=== PATIENT | female | born 1970 | race Asian ===

== ENCOUNTER 2024-05-23 09:46 | Outpatient (AMB) | payer OTHER, SELFPAY ==
--- NOTE | 2024-05-23 09:49 | MHC.PC.OV ---
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 Intake Note: Zohra presents in the office today to establish care and a physical Sales Representative Aircraft Required: Yes Sales Representative Aircraft Name: Son Allergies alginic acid [From Gaviscon] Allergy (Verified 05/23/24 09:53) Rash aluminum hydroxide [From Gaviscon] Allergy (Verified 05/23/24 09:53) Rash calcium carbonate [From Gaviscon] Allergy (Verified 05/23/24 09:53) Rash magnesium [From Gaviscon] Allergy (Verified 05/23/24 09:53) Rash sodium bicarbonate [From Gaviscon] Allergy (Verified 05/23/24 09:53) Rash Tobacco use date assessed: 05/23/24 Dental Screening Dental Screen Date: 05/23/24 Did you have a dental visit in the last 12 months?: Yes Did you have a dental problem in the last 6 months where you did not have access to dental care?: No Was dental information given to patient?: Patient has dentist HPI HPI Comments History of Present Illness Details 53 year old female with a past medical history of hypertension, varicotisits presenting to establish care. Previously at [facility]-one year was at [facility] Hypertension: On amlodipine. BP well controlled. Denies chest pain, exertional dyspnea. No LE edema Has laser vein surgery last year b/l legs in [place]. Preventive: Mammogram: [facility]. Reports UTD Declines ob gyn physician assistant Colon cancer: declines colonoscopy-difficulty with prep per patient. ROS CONSTITUTIONAL: Denies weight loss, fever and chills. HEENT: Denies changes in vision and hearing. RESPIRATORY: Denies SOB and cough. CV: Denies palpitations and CP GI: Denies abdominal pain, nausea, vomiting and diarrhea. : Denies dysuria and urinary frequency. MSK: Denies new myalgia and joint pain. SKIN: Denies rash and pruritus. NEUROLOGICAL: Denies headache PSYCHIATRIC: Denies recent changes in mood. PHYSICAL EXAM: GENERAL: Alert and oriented x 3. NAD EYES: EOMI. Anicteric. HENT: Moist mucous membranes. No scleral icterus. No cervical lymphadenopathy. LUNGS: Clear to auscultation bilaterally. CARDIOVASCULAR: Regular rate and rhythm. No murmur. No JVD. ABDOMEN: Soft, non-tender +bs EXTREMITIES: No edema. Non-tender. SKIN: No rashes or lesions. Warm. NEUROLOGIC: No focal neurological deficits. CN II-XII grossly intact PSYCHIATRIC: Cooperative. 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 1. Little interest or pleasure in doing things: not at all 2. Feeling down, depressed, or hopeless: not at all 3. Trouble falling or staying asleep, or sleeping too much: not at all 4. Feeling tired or having little energy: not at all 5. Poor appetite or overeating: not at all 6. Feeling bad about yourself - or that you are a failure or have let yourself or your family down: not at all 7. Trouble concentrating on things, such as reading the newspaper or watching television: not at all 8. Moving or speaking so slowly that other people could have noticed. Or the opposite - being so fidgety or restless that you have been moving around a lot more than usual: not at all 9. Thoughts that you would be better off or of hurting yourself in some way: not at all Total score: 0 Depression Screening Interpretation: Negative Depression Screening Done: Yes 08275 - PHQ-9 Billing: Patient declined-do not bill Source: Developed by Drs. Jackson Ramos, Yolis Weston, Bart Jack and colleagues, with an educational malena from [employer]. Thrive Questionnaire Date Thrive assessed: 05/23/24 I am a: Patient What is your living situation today?: I have a steady place to live Within the past 12 months, did the food you bought not last and you didn't have the money to get more?: Never true Within the past 12 months, did you worry whether your food would run out before you got money to buy more?: Never true Do you have trouble paying for medicines?: No Do you have trouble getting transportation to medical appointments?: No Do you have trouble paying your heating and electricity bill?: No Do you have trouble taking care of your child, family member or friend?: No Do you have trouble with day-to-day activities such as bathing, preparing meals, shopping, managing finances, etc.?: No Are you currently unemployed and looking for a job?: No Are you interested in more education?: Yes Please select the resources that you would like help with: None Currently or been in a relationship where the following occur: No concerns reported THRIVE Score: 0 AUDIT C Alcohol Use Questionnaire (AUDIT-C) 1. How often do you have a drink containing alcohol?: Never Total Score: 0 NURYS-7 AMB Questionnaire NURYS-7 Date NURYS - 7 assessed: 05/23/24 Feeling nervous, anxious, or on edge: 0 = Not at all Not being able to stop or control worryin = Not at all Worrying too much about different things: 0 = Not at all Trouble relaxin = Not at all Being so restless that it is hard to sit still: 0 = Not at all Becoming easily annoyed or irritable: 0 = Not at all Feeling afraid as if something awful might happen: 0 = Not at all Total NURYS-7 score (0-4 normal; 5-9 mild; 10-14 moderate; 15-21 severe): 0 Source: Developed by Drs. Jackson Ramos, Yolis Weston, Bart Jack and colleagues, with an educational malena from [employer]. NURYS-7 Assessment Billing NURYS-7 Assessment Tool: NURYS-7 Assessment 13506 Physical exam (Primary Care) Vital Signs: Last Vital Signs Pulse 91 05/23/24 09:56 BP 108/68 05/23/24 09:56 Pulse Ox 98 05/23/24 09:56 Oxygen Delivery Method Room Air 05/23/24 09:56 BMI result Body Mass Index 23.0 Tobacco/Smoking Status: Tobacco use Status Tobacco use date assessed 05/23/24 05/23/24 10:00 Patient Tobacco Use Status Never used Tobacco 05/23/24 10:00 e-Cigarette/Vaping Use Never Used 05/23/24 10:00 PHQ-9: PHQ-9 Score PHQ-9: Total score 0 05/23/24 13:00 Depression Screening Interpretation: Negative Thrive Assessment: Date of Thrive Assessment Date Thrive assessed 05/23/24 05/23/24 09:50 Currently or been in a relationship where the following occur: No concerns reported Coding Level of Care Code New Pt Level 4 (58864) Diagnoses Establishing care with new doctor, encounter for Z76.89 Primary hypertension I10 Hypertension type: primary hypertension Low serum vitamin B12 E53.8 Additional Codes NURYS-7 Assessment Billing - NURYS-7 Assessment Tool: NURYS-7 Assessment 68059 ([id number]) Assessment & Plan Assessment & Plan (1) Establishing care with new doctor, encounter for: Code(s): Z76.89 - Persons encountering health services in other specified circumstances (2) Hypertension: Code(s): I10 - Essential (primary) hypertension Category: Medical Qualifiers: Hypertension type: primary hypertension Qualified Code(s): I10 - Essential (primary) hypertension (3) Low serum vitamin B12: Code(s): E53.8 - Deficiency of other specified B group vitamins Category: Medical Plan 53 year old female to establish care Past medical, surgical, social an family history reviewed Medications reconciled HTN well controlled Due for labs Cologuard sent Orders: Orders Complete Blood Count Auto Diff Today I10 - Essential (primary) hypertension, Z13.0 - Encounter for screening for diseases of the blood and blood-forming organs and certain disorders involving the immune mechanism, Z13.220 - Encounter for screening for lipoid disorders, Z13.228 - Encounter for screening for other metabolic disorders Comprehensive Met. Panel Today I10 - Essential (primary) hypertension, Z13.0 - Encounter for screening for diseases of the blood and blood-forming organs and certain disorders involving the immune mechanism, Z13.220 - Encounter for screening for lipoid disorders, Z13.228 - Encounter for screening for other metabolic disorders Hemoglobin A1c Today I10 - Essential (primary) hypertension, Z13.0 - Encounter for screening for diseases of the blood and blood-forming organs and certain disorders involving the immune mechanism, Z13.220 - Encounter for screening for lipoid disorders, Z13.228 - Encounter for screening for other metabolic disorders TSH reflex Free T4 Today I10 - Essential (primary) hypertension, Z13.0 - Encounter for screening for diseases of the blood and blood-forming organs and certain disorders involving the immune mechanism, Z13.220 - Encounter for screening for lipoid disorders, Z13.228 - Encounter for screening for other metabolic disorders Lipid Panel Today I10 - Essential (primary) hypertension, Z13.0 - Encounter for screening for diseases of the blood and blood-forming organs and certain disorders involving the immune mechanism, Z13.220 - Encounter for screening for lipoid disorders, Z13.228 - Encounter for screening for other metabolic disorders Vitamin B12 Today E53.8 - Deficiency of other specified B group vitamins Referrals Cologuard Test Z12.11 - Encounter for screening for malignant neoplasm of colon, Z12.12 - Encounter for screening for malignant neoplasm of rectum
[2024-05-23 09:56] VITALS: BP 108/68; PULSE 91; O2SAT 98; BMI 23.0
--- OUTSIDE RECORDS SUMMARY | 2024-05-23 11:18 | XMS_ITS | Encounter Summary ---
Author Organization [employer] Address [address] [place] [id number] Care Team Providers Care Application Security Architect Name Role Phone García Pardo Primary Care Provider [phone] Reason for Visit * Reason Comments Med Refill Encounter Details Date Type Department Care Team ([facility] Contact Info) Description 10/03/2020 Refill [facility] [address] [place] [address] García Pardo PA [address] [place] [address] Essential (primary) hypertension Social History Tobacco Use Types Packs/Day Years Used Date Smoking Tobacco: Never Smokeless Tobacco: Never Comments:Never a smoker Alcohol Use Standard Drinks/Week Comments Never 0 (1 standard drink = 0.6 oz pur e alcohol) Humiliation, Afraid, Rape, and Kick questionnair e Answer Date Recorded Within the last year, have y ou been afraid of your partner or ex-partner? No 04/17/2020 Within the last year, have y ou been humiliated or emotionally abused in other ways by your partner or ex-partner? No Within the last year, have y ou been kicked, hit, slapped, or otherwise physically hurt by your partner or ex-partner? No 04/17/2020 Within the last year, have y ou been raped or forced to have any kind of sexual activity by your partner or ex-partner? No 04/17/2020 Social Connection and Isolation Panel [NHANES] A nswer Date Recorded In a typical week, how many times do you talk on the phone with family, friends, or neighbors? Patient declined 04/17/2020 How often do you get togethe r with friends or relatives? Patient declined 04/17/2020 How often do you attend bahai or jehovah's witness serv ices? Patient declined 04/17/2020 Do you belong to any clubs o r organizations such as bahai groups, unions, fraternal or athletic groups, or school groups? Patient declined 04/17/2020 How often do you attend meet ings of the clubs or organizations you belong to? Patient declined 04/17/2020 Are you , , di vorced, , never , or living with a partner? Patient declined 04/17/2020 AUDIT-C Answer Date Recorded Q1: How often do you have a drink containing alc ohol? Never 04/17/2020 Average Number of Drinks Not on file Frequency of Binge Drinking Not on file 03/2020 PHQ-2 Answer Date Recorded Patient Health Questionnaire-2 Score 0 04/17/2020 [facility] - Occupational Stress Questionnaire Answer Date Recorded Do you feel stress - tense, restless, nervous, or anxious, or unable to sleep at night because your mind is troubled all the time - these days? Only a little 04/17/2020 Exercise Vital Sign Answer Date Recorde d On average, how many days pe r week do you engage in moderate to strenuous exercise (like a brisk walk)? 0 days Minutes of Exercise per Session Not on file 04/17/2020 Hunger Vital Sign Answer Date Recorded Within the past 12 months, y ou worried that your food would run out before you got the money to buy more. Never true 04/18/19 21 Within the past 12 months, t he food you bought just didn't last and you didn't have money to get more. Never true 04/17/2020 PRAPARE - Transportation Answer Date Re corded In the past 12 months, has l ack of transportation kept you from medical appointments or from getting medications? No 03/2020 In the past 12 months, has l ack of transportation kept you from meetings, work, or from getting things needed for daily living? No 04/17/2020 Comments Unknown Sex and Gender Information Value Date Recorded Sex Assigned at Not on file Legal Sex Female 3:07 PM MST Gender Identity Not on file Sexual Orientation Not on file Occupation Industry Job Start Date Job End Date Not on file Not on file Not on file Not on file documented as of this encounter Plan of Treatment Not on file documented as of this encounter Visit Diagnoses Diagnosis Essential (primary) hypertension Unspecified essential hypertension documented in this encounter Care Teams Application Security Architect Relationship Specialty Start Date End Date García Pardo PA [address] [place] [address] PCP - General Family Medicine 03/22/20 documented as of this encounter
--- OUTSIDE RECORDS SUMMARY | 2024-05-23 11:18 | XMS_ITS | Clinical Summary ---
Author Organization [facility] ity Address [address] [place] [address] Care Team Providers Care Neck Band Maker Name Role Phone Unavailable Primary Care Provider Unavailabl e Medical History Medical History Date Comments Essential hypertension DX:Essent ial hypertension Social History Tobacco Use Types Packs/Day Years Used Date Smoking Tobacco: Never Smokeless Tobacco: Never Alcohol Use Standard Drinks/Week Comments Never 0 (1 standard drink = 0.6 oz pur e alcohol) Comments Unknown Sex and Gender Information Value Date Recorded Sex Assigned at Not on file Legal Sex Female 2:43 AM EST Gender Identity Not on file Sexual Orientation Not on file Obstetrics History Last Filed Vital Signs Vital Sign Reading Time Taken Comments Blood Pressure - - Pulse - - Temperature - - Respiratory Rate - - Oxygen Saturation - - Inhaled Oxygen Concentration - - Weight 64 kg (141 lb 1.5 oz) 03/24/2023 10:17 AM EST Height 165.1 cm (5' 5 ) 03/24/2023 10:17 AM EST Body Mass Index 23.48 03/24/2023 10:17 AM EST Plan of Treatment Health Maintenance Due Date Last Done Comments DTaP,Tdap,and Td Vaccines (1 - Tdap) 07/28/1987 Hepatitis B Vaccines (1 of 3 - 19+ 3-dose series) 07/28/1987 Cervical Cancer Screening: P ap Smear 1989 Pneumococcal Vaccine: 50+ Ye ars (1 of 1 - PCV) 2018 Zoster Vaccines (1 of 2) 2018 Breast Cancer Screening 06/25/2020 06/25/2018 Colorectal Cancer Screening: Colonoscopy 01/19/2022 Depression Screening 01/19/2022 HIV Screening 01/19/2022 Hepatitis C Screening 01/19/2022 Social Influencers of Health Screening 01/19/2022 COVID-19 Vaccine (2023-2 5 season) 2023 Influenza Vaccine (Season Ended) 2024 HIB Vaccines Aged Out No longer eligi ble based on patient's age to complete this topic HPV Vaccines Aged Out No longer eligi ble based on patient's age to complete this topic Hepatitis A Vaccines Aged Out No long er eligible based on patient's age to complete this topic IPV Vaccines Aged Out No longer eligi ble based on patient's age to complete this topic MMR Vaccines Aged Out No longer eligi ble based on patient's age to complete this topic Meningococcal ACWY Vaccine Aged Out N o longer eligible based on patient's age to complete this topic Meningococcal B Vacine Aged Out No lo nger eligible based on patient's age to complete this topic Pneumococcal Vaccine: Pediat rics (0 to 5 Years) and At-Risk Patients (6 to 64 Years) Aged Out No longer eligi ble based on patient's age to complete this topic RSV Immunization Patients Un usha 20 months Aged Out No longer eligible b ased on patient's age to complete this topic Varicella Vaccines Aged Out No longer eligible based on patient's age to complete this topic Procedures Procedure Name Priority Date/Time Associated Diagnosis Comments [facility] SCREENING DIGITAL Routine 06/25/2018 4:51 PM EDT Encounter for screening mammogram for malignant neoplasm of breast from Last 3 Months or Most Recently Relevant to Health Maintenance Results * [facility] SCREENING DIGITAL (06/25/2018 4:51 PM EDT) Anatomical Region Laterality Modality Mammography 06/25/2018 3:05 PM EDT Narrative 06/25/2018 4:51 PM EDT [facility] Diagnostic Imaging Department [address] [place] [address] [id number] Patient: ??ZOHRA LARIOS ?/Age/Sex: 1970 - 47 - F Unit#: ??[id number] ? Location/Status: ??SPDIMAM/REG CLI ? Mnemonic/Ordering Site: ??DIGSC/SPMAM Ordering Physician: ??TAD ALVAREZ PA-C [facility] Screening Digital - 06/25/18 - 1530 INDICATION: Screening. COMPARISON: Baseline mammogram TECHNIQUE: Routine views of both breasts were obtained using full-field direct digital mammography. Bilateral tomosynthesis was performed in MLO projection. Computer Aided Detection was utilized. BREAST PARENCHYMAL COMPOSITION: The breast parenchyma is dense which limits the sensitivity of mammography. (Category d density) FINDINGS: ??There is no suspicious finding within either breast. Scattered microcalcifications in both breasts. Early vascular calcifications in both breasts. Recommend clinical correlation for diabetes given patient's age. IMPRESSION: 1. No mammographic evidence of malignancy. 2. Annual screening mammography is recommended . OVERALL FINAL ASSESSMENT: BI-RADS Assessment Category 2: Benign. PQRI CPT II 3342 F A negative mammogram in the presence of clinically suspicious palpable abnormality does not preclude the possibility of malignancy or alter the indications for biopsy. Note: Patient information entered into a reminder system with a target due date for the next mammogram: ??CPT II 7025F [id number] Dictating Physician: ??NO GAMBOA MD Electronically Signed by: ??NO GAMBOA MD Dic Date/Time: ??06/25/181649 Sign date/Time: ??06/25/181650 Procedure Note No Gamboa MD - 02/04/2022 [facility] Diagnostic Imaging Department [address] [place] [address] Patient: ZOHRA LARIOS /Age/Sex: 1970 - 47 - F Unit#: [id number] Location/Status: SPDIMAM/REG CLI Mnemonic/Ordering Site: [facility] Ordering Physician: TAD ALVAREZ PA-C [facility] Screening Digital - 06/25/18 - 1531 INDICATION: Screening. COMPARISON: Baseline mammogram TECHNIQUE: Routine views of both breasts were obtained using full-fielddirect digital mammography. Bilateral tomosynthesis was performed in MLOprojection. Computer Aided Detection was utilized. BREAST PARENCHYMAL COMPOSITION: The breast parenchyma is dense whichlimits the sensitivity of mammography. (Category d density) FINDINGS: There is no suspicious finding within either breast.Scattered microcalcifications in both breasts. Early vascular calcifications inboth breasts. Recommend clinical correlation for diabetes given patient'vicente. IMPRESSION: 1. No mammographic evidence of malignancy. 2. Annual screening mammography is recommended . OVERALL FINAL ASSESSMENT: BI-RADS Assessment Category 2: Benign. PQRI CPT II 3342 F A negative mammogram in the presence of clinically suspicious palpable abnormality does not preclude the possibility of malignancy or alter the indications for biopsy. Note: Patient information entered into a reminder system with a target duedate for the next mammogram: CPT II 7025F [id number] [id number] Dictating Physician: NO GAMBOA MD Electronically Signed by: NO GAMBOA MD Dic Date/Time: 06/25/181649 Sign date/Time: 06/25/181650 us Tad DAVIES IMG BI PROCEDURES Final Result from Last 3 Months or Most Recently Relevant to Health Maintenance
--- OUTSIDE RECORDS SUMMARY | 2024-05-23 11:18 | XMS_ITS | Clinical Summary ---
Author Organization [employer] Address [address] [place] [address] Care Team Providers Care Zyglo Inspector Name Role Phone García Pardo Primary Care Provider [phone] Allergies Active Allergy Reactions Criticality Noted Date Comments Calcium Carbonate Rash Low 04/17/2020 Gaviscon liquid- arms rash & itchiness. Medications omeprazole OTC (PriLOSEC OTC) 20 mg EC tabletIndications :Gastroesophageal reflux disease without esophagitis Take one 1 hour before breakfast. Do not crush, chew, or split. 30 tablet 2 1 Active amLODIPine (NORVASC) 10 mg tabletIndications :Essential (primary) hypertension TAKE 1 TABLET BY MOUTH EVERY DAY 90 tablet 1 1 Active cetirizine (ZyrTEC) 10 mg tablet cetirizine 10 mg tablet Active artificial tears,hypromellos e, 0.3 % drops Administer 1 drop into affected eye(s). 9 Active Active Problems Problem Noted Date Diagnosed Date De Quervain's tenosynovitis 04/09/2021 Fall at home, initial encounter 12/10/2020 Overview (12/10/2020): Ground level fall with persistent left knee pain since it occurred two days ago, adult son is taking pt to [facility] ER for imaging and further evaluation Gastroesophageal reflux disease without esophagi tis 04/17/2020 Essential (primary) hypertension 04/17/2020 Drug allergy 04/17/2020 Chronic midline back pain 01/26/2020 Family History Medical History Relation Comments Other cancer Father oral Relation Status Comments Father Alive Mother Alive Paternal Grandfather Social History Tobacco Use Types Packs/Day Years Used Date Smoking Tobacco: Never Smokeless Tobacco: Never Tobacco Cessation:Counseling Given: No Comments:Never a smoker Alcohol Use Standard Drinks/Week [...] declined 04/17/2020 How often do you attend amish or voodoo serv ices? Patient declined 04/17/2020 Do you belong to any clubs o r organizations such as amish groups, unions, fraternal or athletic groups, or [...] Average Number of Drinks Not on file 021 Frequency of Binge Drinking Not on file 03/2020 PHQ-2 Answer Date Recorded Depression Risk (PHQ2) Score 0 [facility] of Occupat ional Health - Occupational Stress Questionnaire Answer Date Recorded [...] on file Legal Sex Female 3:07 PM [facility] Gender Identity Not on file Sexual Orientation Not on file Occupation Industry Job Start Date Job End Date Not on file Not on file Not on file Not on file Last Filed Vital Signs Vital Sign Reading Time Taken Comments Blood Pressure 124/78 12/10/2020 11:07 AM EDT Pulse 91 12/10/2020 11:07 AM EDT Temperature 36.4 ??C (97.5 ??F) 12/10/2020 1 1:07 AM EDT Respiratory Rate 16 04/17/2020 2:54 PM EST Oxygen Saturation 100% 12/10/2020 11: 07 AM EDT Inhaled Oxygen Concentration - - Weight 58.5 kg (128 lb 14.4 oz) 04/17/2020 2:54 PM EST Height 162.3 cm (5' 3.9 ) 01/21/2020 9:53 AM EST Body Mass Index 22.2 01/21/2020 9:53 AM EST Plan of Treatment Health Maintenance Due Date Last Done Comments CT Colonography 1968 Cologuard 1968 Colonoscopy 1968 Colorectal Cancer Screening 1968 FOBT/FIT 1968 Hepatitis C Screening 1968 Sigmoidoscopy 1968 PHQ-9 Depression Screen 1980 Complete Annual HRA 1986 NURYS-7 Anxiety Screen 1986 DTaP,Tdap,and Td Vaccines (1 - Tdap) 07/28/1987 Mammogram 2008 Pneumococcal Vaccine: 50+ Ye ars (1 of 1 - PCV) 2018 Zoster Vaccines (1 of 2) 2018 Annual Preventive Exam 01/20/2021 01/21/2020 Cervical Cancer Screening (Pap/HPV) 07/14/2023 07/13/2018 (Previously completed - patient stated) COVID-19 Vaccine (4 - 2023-2 5 season) 2023 12/31/2020, 06/09/2020, 05/17/2020 Influenza Vaccine (Season Ended) 2024 12/31/2020, 11/12/2019, 11/07/2018 RSV Vaccine (SCDM) (1 - 1-do se 75+ series) 07/28/2043 Insurance [employer] Care Teams Zyglo Inspector Relationship Specialty Start Date End Date García Pardo PA [address] [place] [address] PCP - General Family Medicine 03/22/20
--- OUTSIDE RECORDS SUMMARY | 2024-05-23 11:18 | XMS_ITS | Encounter Summary ---
Author Organization [employer] Address [address] [place] [address] Care Team Providers Care Nuclear Fuel Enrichment Technician Name Role Phone García Pardo Primary Care Provider [phone] Reason for Visit * Reason Comments Med Refill Encounter Details Date Type Department Care Team ([facility] Contact Info) Description 04/15/2020 Refill [facility] [address] [place] [address] García Pardo PA [address] [place] [address] Essential (primary) hypertension Social History Tobacco Use [...] declined 04/17/2020 How often do you attend yazidi or muslim serv ices? Patient declined 04/17/2020 Do you belong to any clubs o r organizations such as yazidi groups, unions, fraternal or athletic groups, or [...] Recorded Patient Health Questionnaire-2 Score 0 04/17/[address] [facility] - Occupational Stress Questionnaire Answer Date [...] hypertension documented in this encounter Care Teams Nuclear Fuel Enrichment Technician Relationship Specialty Start Date End Date García Pardo PA [address] [place] [address] PCP - General Family Medicine 03/22/20 documented as of this encounter
--- OUTSIDE RECORDS SUMMARY | 2024-05-23 11:18 | XMS_ITS | Clinical Summary ---
Author Organization [facility] Address [address] [place] [address] Care Team Providers Care Beater Out Leveling Machine Name Role Phone Unavailable Primary Care Provider Unavailabl e Allergies Active Allergy Reactions Criticality Noted Date Comments Calcium Carbonate Rash Low 04/17/2020 Gaviscon liquid- arms rash & itchiness. Other 07/22/2021 Rash Medications Medication Sig Dispensed Refills Start Date End Date Status amLODIPine (NORVASC) tablet 10 mg 0 10/03/2020 Active azithromycin (ZITHROMAX) 250 MG tablet azithromycin 250 mg tablet 0 Active benzonatate (TESSALON) 100 MG capsule benzonatate 100 mg capsule 0 Active cetirizine (ZyrTEC) 10 MG tablet cetirizine 10 mg tablet 0 Active Cholecalciferol 1.25 MG (49317 UT) capsule Take 50,000 Units by mouth. 0 07/20/2018 Active clobetasol (TEMOVATE) 0.05 % cream PLEASE SEE ATTACHED FOR DETAILED DIRECTIONS 0 03/25/2020 Active clotrimazole-betame thasone (LOTRISONE) cream clotrimazole-betameth asone 1 %-0.05 % topical cream 0 Active famotidine (PEPCID) 40 MG tablet TAKE 1 TABLET BY MOUTH TWICE A DAY FOR 14 DAYS 0 03/25/2020 Active fluconazole (DIFLUCAN) 150 MG tablet TAKE 1 TABLET BY MOUTH EVERY DAY FOR 3 DAYS 0 03/26/2020 Active Hypromellose 0.3 % SOLN Apply 1 drop to eye. 0 09/16/2018 Acti ve neomycin-polymyxin- pramoxine (NEOSPORIN) 1 % cream Apply topically. 0 09/16/2018 Active omeprazole (PriLOSEC OTC) 20 MG tablet Take one 1 hour before breakfast. Do not crush, chew, or split. 0 03/22/2020 Active predniSONE (DELTASONE) tablet 20 mg PLEASE SEE ATTACHED FOR DETAILED DIRECTIONS 0 06/05/2021 Active Active Problems Problem Noted Date Diagnosed Date De Quervain's disease (radia l styloid tenosynovitis) right wrist 08/14/2021 Social History Tobacco Use Types Packs/Day Years Used Date Smoking Tobacco: Never Smokeless Tobacco: Never Sex and Gender Information Value Date Recorded Sex Assigned at Female 12/11/2020 1:33 PM EDT Gender Identity Female 12/11/2020 1:33 PM EDT Sexual Orientation Not on file Job Start Date Occupation Industry Not on file Not on file Not on file Last Filed Vital Signs Vital Sign Reading Time Taken Comments Blood Pressure - - Pulse - - Temperature - - Respiratory Rate - - Oxygen Saturation - - Inhaled Oxygen Concentration - - Weight 56.2 kg (124 lb) 08/14/2021 1:57 PM EDT Height 165.1 cm (5' 5 ) 08/14/2021 1:57 PM EDT Body Mass Index 20.63 08/14/2021 1:57 PM EDT Plan of Treatment Health Maintenance Due Date Last Done Comments Hepatitis B Vaccines (1 of 3 - 3-dose series) 1968 Hepatitis C Screening 1968 Depression Screening 1980 Preventative Health Evaluation 1986 DTap / Tdap / Td (1 - Tdap) 07/28/1987 Cervical Cancer Screening (Pap Smear) 1989 Colon Cancer Screening (Colonoscopy) 2013 Breast Cancer Screening (Mammogram) 2018 COVID-19 Vaccine (2023-2 5 season) 2023 12/31/2020, 06/09/2020, 05/17/2020 Influenza Vaccine (#1) 2023 , 11/12/2019, 11/07/2018 Shingrix-Zoster Vaccine Completed 02/17/19, 11/12/2019 Pneumococcal Vaccine Aged Out No long er eligible based on patient's age to complete this topic RSV Ped < 20 months Aged Out No longe r eligible based on patient's age to complete this topic
--- OUTSIDE RECORDS SUMMARY | 2024-05-23 11:18 | XMS_ITS | Clinical Summary ---
Author Organization [facility] Address [address] [place] [address] Care Team Providers Care Boom Pump Operator Name Role Phone Ekaterina Ann [facility] Primary Care Provider [phone] Source Comments PLEASE NOTE, if this patient is a minor, it may be UNLAWFUL to discuss sensitive information that is contained in these records (such as FAMILY PLANNING, MENTAL HEALTH or SUBSTANCE ABUSE) with the minor patient's parent or other person without the patient's specific authorization.[facility] Allergies No known active allergies Medications cholecalciferol , vitamin D3, (VITAMIN D3) 50,000 unit capsuleIndicati ons:Low serum vitamin D Take 1 Cap by mouth once a week 12 Each 3 9 Active clotrimazole-be tamethasone (LOTRISONE) 1-0.05 % creamIndication s:Itching of vagina Apply topically 2 (two) times daily 30 g 1 9 Active neomycin-polymy danya-pramoxine (NEOSPORIN) 3.5-10,000-10 mg-unit-mg/gram creamIndication s:Itching of vagina Apply topically 2 (two) times daily 15 g 1 9 Active artificial tears,hypromell ose, (GENTEAL) 0.3 % ophthalmic solutionIndicat ions:Dry eyes Place 1 Drop into both eyes 4 (four) times daily 25 mL 1 9 Active amLODIPine (NORVASC) 10 mg tablet TAKE 1 TABLET BY MOUTH EVERY DAY 90 Tab 0 Active Active Problems Problem Noted Date Diagnosed Date Osteophyte of left ankle 09/19/2018 Overview (09/19/2018): Date:Francine: 09/16/2018 Xray of left heel. Status: F HISTORY: The patient is a 48-year-old female with chronic pain in the calcaneus, nontraumatic. FINDINGS: AP and lateral radiographs of the calcaneus demonstrate no fracture or dislocation. There is a small inferior calcaneal osteophyte measuring 4.2 mm in length and 2.9 mm in thickness. No soft tissue abnormality is seen. IMPRESSION: Normal examination with the incidental exception of a small inferior calcaneal osteophyte Gastroesophageal reflux disease without esophagi tis 06/13/2018 Overweight (BMI 25.0-29.9) 05/30/2018 Persistent dry cough 05/30/2018 Essential hypertension 05/28/2018 Family History Medical History Relation Name Comments Cancer Father oral cancer High Cholesterol Mother Hypertension Mother Relation Name Status Comments Father Alive Mother Alive Social History Tobacco Use Types Packs/Day Years Used Date Smoking Tobacco: Never Smokeless Tobacco: Never Alcohol Use Standard Drinks/Week Comments No 0 (1 standard drink = 0.6 oz pur e alcohol) Social Connections Answer Date Recorded Social Connections and Isolation 0 10/11/2018 Financial Resource Strain Answer Date R ecorded Financial Resource Strain 0 2018 Stress Answer Date Recorded Stress 0 10/11/2018 Physical Activity Answer Date Recorded Physical Activity 0 10/11/2018 Food Insecurity Answer Date Recorded Food 0 10/11/2018 Transportation Needs Answer Date Record ed Transportation 0 10/11/2018 Housing Stability Answer Date Recorded Housing 0 10/11/2018 Safety and Environment Answer Date Ryan rded Safety 0 10/11/2018 Utilities Answer Date Recorded Utilities 0 10/11/2018 Employment Answer Date Recorded Employment 0 10/11/2018 Comments No Sex and Gender Information Value Date Recorded Sex Assigned at Female 05/28/2018 7:06 AM PDT Legal Sex Female 11:37 AM PDT Gender Identity Female 05/28/2018 7:06 AM PDT Sexual Orientation Straight 05/28/2018 7: 06 AM PDT Last Filed Vital Signs Vital Sign Reading Time Taken Comments Blood Pressure 124/86 09/16/2018 11:40 AM EDT Pulse 76 09/16/2018 11:40 AM EDT Temperature 36.7 ??C (98.1 ??F) 09/16/2018 11:40 AM E DT Respiratory Rate 16 09/16/2018 11:40 AM EDT Oxygen Saturation - - Inhaled Oxygen Concentration - - Weight 63.6 kg (140 lb 3.2 oz) 09/16/2018 11:40 AM EDT Height 162.6 cm (5' 4 ) 09/16/2018 11:40 AM EDT Body Mass Index 24.07 09/16/2018 11:40 AM EDT Plan of Treatment Not on file Insurance [employer] Member Subscriber Plan / Payer (Ef fective 2018-Present) Name:Zohra Larios Relation to Subscriber:Spouse Name:Louise Larios Date of :1967 (Home) Address: [address] [place] [address] Payer ID:[id number] Type:Indemnity Address: [facility] [address] [place] [address] Care Teams Boom Pump Operator Relationship Specialty Start Date End Date Ekaterina Ann FNP [address] [place] [address] PCP - General Internal Medicine 07/13/18
== END 2024-05-23 10:15 | disposition home or self-care (01) ==
LOC: HO.HMCFM 09:47
PROVIDERS: PCP Internal Medicine; Visit Provider Internal Medicine
DX: Z76.89 Persons encountering health services in other specified circumstances (principal); I10 Essential (primary) hypertension; E53.8 Deficiency of other specified B group vitamins

== ENCOUNTER → 2024-05-23 09:46 | Outpatient (BNVA) | payer OTHER, SELFPAY | PROVIDERS: PCP Internal Medicine; Visit Provider Internal Medicine | DX: Z76.89 Persons encountering health services in other specified circumstances (principal); I10 Essential (primary) hypertension; E53.8 Deficiency of other specified B group vitamins; Z79.899 Other long term (current) drug therapy | CPT/HCPCS: 96127 ==

== ENCOUNTER 2024-05-23 10:22 | Outpatient (REF) | payer OTHER, SELFPAY ==
--- OUTSIDE RECORDS SUMMARY | 2024-05-23 12:07 | XMS_ITS | Clinical Summary ---
Author Organization [employer] Address [address] [place] [address] Care Team Providers Care Silk Screen Layout Drafter Name Role Phone García Pardo Primary Care Provider [phone] Allergies Active Allergy Reactions Criticality Noted Date [...] ago, adult son is taking pt to [facility] ER for imaging and further evaluation [...] declined 04/17/2020 How often do you attend worship or worship serv ices? Patient declined 04/17/2020 Do you belong to any clubs o r organizations such as worship groups, unions, fraternal or athletic groups, or [...] Date Recorded Depression Risk (PHQ2) Score 0 [facility] of Occupat ional Health - Occupational Stress [...] on file Legal Sex Female 3:07 PM [facility] Gender Identity Not on file Sexual Orientation [...] 75+ series) 07/28/2043 Insurance [employer] Care Teams Silk Screen Layout Drafter Relationship Specialty Start Date End Date García Pardo PA [address] [place] [address] PCP - General Family Medicine 03/22/20
--- OUTSIDE RECORDS SUMMARY | 2024-05-23 12:07 | XMS_ITS | Encounter Summary ---
Author Organization [employer] Address [address] [place] [address] Care Team Providers Care Delivery Helper Name Role Phone García Pardo Primary Care Provider [phone] Reason for Visit * Reason Comments Med Refill Encounter Details Date Type Department Care Team ([facility] Contact Info) Description 04/15/2020 Refill [facility] [address] [place] [address] García Pardo PA [address] [place] [address] Essential (primary) hypertension Social History Tobacco Use [...] declined 04/17/2020 How often do you attend restorationist or congregation serv ices? Patient declined 04/17/2020 Do you belong to any clubs o r organizations such as restorationist groups, unions, fraternal or athletic groups, or [...] Recorded Patient Health Questionnaire-2 Score 0 04/17/2020 [facility] - Occupational Stress Questionnaire Answer Date [...] hypertension documented in this encounter Care Teams Delivery Helper Relationship Specialty Start Date End Date García Pardo PA [address] [place] [address] PCP - General Family Medicine 03/22/20 documented as of this encounter
--- OUTSIDE RECORDS SUMMARY | 2024-05-23 12:07 | XMS_ITS | Encounter Summary ---
Author Organization [employer] Address [address] [place] [address] Care Team Providers Care Tile Burner Name Role Phone García Pardo Primary Care Provider [phone] Reason for Visit * Reason Comments Med Refill Encounter Details Date Type Department Care Team ([facility] Contact Info) Description 10/03/2020 Refill [facility] [address] [place] [address] García Pardo PA [address] [place] [address] Essential (primary) hypertension Social History Tobacco Use [...] declined 04/17/2020 How often do you attend restoration or jain serv ices? Patient declined 04/17/2020 Do you belong to any clubs o r organizations such as restoration groups, unions, fraternal or athletic groups, or [...] Recorded Patient Health Questionnaire-2 Score 0 04/17/2020 [facility] - Occupational Stress Questionnaire Answer Date [...] hypertension documented in this encounter Care Teams Tile Burner Relationship Specialty Start Date End Date García Pardo PA [address] [place] [address] PCP - General Family Medicine 03/22/20 documented as of this encounter
--- OUTSIDE RECORDS SUMMARY | 2024-05-23 12:08 | XMS_ITS | Clinical Summary ---
Author Organization [facility] ity Address [address] [place] [address] Care Team Providers Care Head Mixer Name Role Phone Unavailable Primary Care Provider [...] Procedure Name Priority Date/Time Associated Diagnosis Comments [facility] SCREENING DIGITAL Routine 06/25/2018 4:51 PM EDT Encounter for screening mammogram for malignant neoplasm of breast from Last 3 Months or Most Recently Relevant to Health Maintenance Results * [facility] SCREENING DIGITAL (06/25/2018 4:51 PM EDT) Anatomical Region Laterality Modality Mammography 06/25/2018 3:05 PM EDT Narrative 06/25/2018 4:[address] [facility] Diagnostic Imaging Department [address] [place] [id number] Patient: ??ZOHRA LARIOS ?/Age/Sex: 1970 - 47 - F Unit#: ??[id number] ? Location/Status: ??SPDIMAM/REG CLI ? Mnemonic/Ordering Site: [...] for the next mammogram: ??CPT II 7025F [id number] Dictating Physician: ??NO GAMBOA MD Electronically Signed by: ??NO GAMBOA MD Dic Date/Time: ??06/25/181649 Sign date/Time: ??06/25/181650 Procedure Note No Gamboa MD - 02/04/2022 [facility] Diagnostic Imaging Department [address] [place] [address] Patient: ZOHRA LARIOS /Age/Sex: 1970 - 47 - F Unit#: [id number] Location/Status: SPDIMAM/REG CLI Mnemonic/Ordering Site: [facility] Ordering Physician: TAD ALVAREZ PA-C Soham Screening [...] for the next mammogram: CPT II 7025F [id number] Dictating Physician: NO GAMBOA MD Electronically Signed by: NO GAMBOA MD Dic Date/Time: 06/25/181649 Sign date/Time: 06/25/181650 us Tad DAVIES IMG BI PROCEDURES Final Result from Last 3 Months or Most Recently Relevant to Health Maintenance
--- OUTSIDE RECORDS SUMMARY | 2024-05-23 12:08 | XMS_ITS | Clinical Summary ---
Author Organization [facility] Address [address] [place] [address] Care Team Providers Care Product Tester Name Role Phone Ekaterina Ann [facility] Primary Care Provider Source Comments PLEASE NOTE, if this patient [...] Plan of Treatment Not on file Insurance [employer] Member Subscriber Plan / Payer (Ef fective 2018-Present) Name:Zohra Larios Relation to Subscriber:Spouse Name:Louise Larios Date of :1967 (Home) [address]: [address] [place] [address] Payer ID:[id number] Type:Indemnity Address: [facility] [address] [place] [address] Care Teams Product Tester Relationship Specialty Start Date End Date Ekaterina Ann FNP [address] [place] [address] PCP - General Internal Medicine 07/13/18
--- OUTSIDE RECORDS SUMMARY | 2024-05-23 12:08 | XMS_ITS | Clinical Summary ---
Author Organization [facility] Address [address] [place] [address] Care Team Providers Care Selvage Machine Operator Name Role Phone Unavailable Primary Care Provider [...] mg tablet 0 Active Cholecalciferol 1.25 MG (76384 UT) capsule Take 50,000 Units by mouth. [...]
[2024-05-23 13:57] LABS: MANUAL DIFF FLAG NO
[2024-05-23 14:07] LABS: Basophils Absolute Auto 0.1 X10*3/uL (0.0-0.2); Basophils Percent Auto 1.1 % (0-2); Eosinophils Absolute Auto 0.2 X10*3/uL (0.0-0.4); Eosinophils Percent Auto 3.6 % (0-4); Hematocrit 41.2 % (37.0-47.0); Hemoglobin 13.4 g/dl (12.0-16.0); Imm Gran Abs Auto 0.02 X10*3/uL (0.00-0.03); Imm Gran Pct Auto 0.4 % (0.0-0.4); Lymphocytes Absolute Auto 1.6 X10*3/uL (1.2-4.9); Lymphocytes Percent Auto 34.5 % (20-40); Mean Corpuscular HGB Conc 32.5 g/dl (31.0-35.0); Mean Corpuscular Hemoglobin 25.8 pg (27.0-33.0); Mean Corpuscular Volume 79.4 fL (80.0-98.0); Mean Platelet Volume 10.3 fL (9.4-12.3); Monocytes Absolute Auto 0.4 X10*3/uL (0.1-1.2); Monocytes Percent Auto 8.7 % (2-11); Neutrophils Absolute Auto 2.4 x10*3/uL (2.0-8.3); Neutrophils Percent Auto 51.7 % (45-73); Platelet Count 259 X10*3/uL (160-400); Red Blood Count 5.19 X10*6/uL (4.20-5.50); Red Cell Distribution Width 14.4 % (11.0-16.0); White Blood Count 4.7 X10*3/uL (4.8-10.8)
[2024-05-23 14:20] LABS: Estimated Average Glucose 120 mg/dL; Hemoglobin A1C 143.3015 umol/L; Hemoglobin A1c % 5.8 % (<6.0); Total Hemoglobin (HGBA1C) 3592.4528 umol/L
[2024-05-23 14:43] LABS: Alanine Aminotransferase 21 U/L (0-31); Alkaline Phosphatase 95 U/L (39-117); Anion Gap 9 (12-20); Aspartate Amino Transferase 27 U/L (5-31); Bilirubin Total 0.5 mg/dL (0.0-1.0); Blood Urea Nitrogen 9 mg/dL (9-16); Calcium 9.4 mg/dL (8.4-10.2); Carbon Dioxide 24 mmol/L (22-29); Chloride 112 mmol/L (96-108); Cholesterol 224 mg/dL (<200); Estimated Glomerular Filt Rate > 60; Glucose Random 93 mg/dL (60-115); HDL Cholesterol 38 mg/dL (>40); LDL Cholesterol Calculated 156 mg/dL (<100); Potassium 4.2 mmol/L (3.3-5.1); Sodium 141 mmol/L (135-145); TSH reflex Free T4 0.04 uIU/mL (0.32-4.0); Total Protein 7.4 g/dL (6.5-8.0); Triglycerides 152 mg/dL (<150)
[2024-05-23 14:44] LABS: Vitamin B12 390 pg/mL (200-900)
[2024-05-23 15:15] LABS: Free T4 (Free Thyroxine) 1.58 ng/dL (0.71-1.85)
== END 2024-05-23 10:23 | disposition home or self-care (01) ==
LOC: HO.WFDLDS 10:22
PROVIDERS: Visit Provider Internal Medicine
DX: I10 Essential (primary) hypertension (principal); Z13.228 Encounter for screening for other metabolic disorders; Z13.0 Encounter for screening for diseases of the blood and blood-forming organs and certain disorders involving the immune mechanism; Z13.220 Encounter for screening for lipoid disorders; E53.8 Deficiency of other specified B group vitamins; Z13.1 Encounter for screening for diabetes mellitus
CPT/HCPCS: 36415; 80053; 80061; 82607; 83036; 84439; 84443; 85025

== ENCOUNTER 2024-08-01 08:59 | Outpatient (AMB) | payer OTHER, SELFPAY ==
--- NOTE | 2024-08-01 09:01 | A.OFFVIS_ITS ---
Vital Signs 08/01/24 09:02 Height 5 ft 5 in Weight 139 lb 1.787 oz BMI 23.1 BP 110/70 Blood Pressure Location Rt brachial Position Sitting Pulse 77 Pulse Source Pulse Oximeter Pulse Oximetry (%) 100 Intake Visit Reasons: Hyperthyroidism Intake Note: New patient present today for Hyperthyroidism. Senior Corporate Accountant Required: Yes Senior Corporate Accountant Name: bartolo Accompanied by: Son Allergies alginic acid [From Gaviscon] Allergy (Verified 08/01/24 09:01) Rash aluminum hydroxide [From Gaviscon] Allergy (Verified 08/01/24 09:01) Rash calcium carbonate [From Gaviscon] Allergy (Verified 08/01/24 09:01) Rash magnesium [From Gaviscon] Allergy (Verified 08/01/24 09:01) Rash sodium bicarbonate [From Gaviscon] Allergy (Verified 08/01/24 09:01) Rash Medication List - Last Reconciled 08/01/24 by Naomi Morel MD amlodipine 10 mg PO DAILY multivitamin (Daily Multi-Vitamin tablet) 1 tab PO DAILY HPI Comments Details: 54-year-old female coming in today for initial evaluation of subclinical hyperthyroidism. Here today with son. Chart review shows that blood work from 05/23/2024 showed TSH low at 0.04, free T4 normal at 1.58. No history of thyroid dysfunction. Patient currently denies , hair loss, palpitation, anxiety, changes in appearance of eyes or vision changes, tremors, increased diaphoresis or dry skin. ? Constipation chronic. Some heat intolerance at night. Lost 5 kgs in the last 8-9 months Reports some increased anxiety and tiredness since 1-2 years Post menopausal since 2-3 years Thinks she might have had some preceding viral illness close to the blood work Denies history of osteoporosis/fragility fracture Denies recent contrast exposure Denies history of HI/CAD Patient denies any difficulty swallowing, pain on swallowing or voice changes or difficulty breathing. Patient denies any history of childhood neck radiation. Denies having ever used lithium, amiodarone or biotin supplements. Patient denies any family history of thyroid cancer or thyroid disease. Physical exam General: sitting comfortably in no acute distress HEENT: normocephalic/atraumatic, EOM intact, moist oral mucosa Neck: supple, palpable 2 cm left-sided nodule Cardiac: normal heart sounds Pulm: normal breath sounds B/L, no added breath sounds Abd: not distended, no tenderness Extremities: no edema, no signs of myxedema Neuro: AAO x3, Speech: normal, no facial droop, moving all 4 extremities Laboratory Tests 05/23/24 10:25 WBC 4.7 L Neut % (Auto) 51.7 Absolute Neuts (auto) 2.4 AST 27 ALT 21 TSH 0.04 L Free T4 1.58 [facility] Medical History (Updated 08/01/24 @ 09:27 by Naomi Morel MD) Thyroid nodule Family History Mother Hypertension Hyperlipemia Father Cancer of mouth Social History Housing: House Housing Other:: Lives with her son Alcohol intake: never Patient Tobacco Use Status: Never used Tobacco e-Cigarette/Vaping Use: Never Used Second Hand Smoke Exposure: No service: No Current occupational status: employed 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 She has no prior history of thyroid disease or thyroid dysfunction. She was complaining of weight loss and tiredness which is why the blood work was done. Thinks she might have add some preceding viral illness close to the blood work, possibly could be thyroiditis. No recent contrast exposure. Given TSH is less than 0.1, does need further investigation. We will check antibodies and repeat thyroid function at this time given blood work was 2 months ago. She does not have any symptoms of orbitopathy or exophthalmos. No enlarged goiter to suggest Graves disease. During my exam I also palpate a 2 cm left-sided nodule, could possibly have toxic nodular goiter, we will also do an ultrasound of the thyroid. Plan: -check TSH, free T4, total T3, TSI, TSH receptor and TPO antibodies -ordered ultrasound of the thyroid -follow up in 6 weeks to discuss results (2) Thyroid nodule: Code(s): E04.1 - Nontoxic single thyroid nodule Category: Medical Plan: During my exam I also palpate a 2 cm left-sided nodule, could possibly have toxic nodular goiter, we will also do an ultrasound of the thyroid. Plan: -ordered ultrasound of the thyroid Plan I spent 45 minutes in reviewing the record, seeing the patient and documenting in the medical record. Orders: Orders Thyroid Stimulating Hormone Today E05.90 - Thyrotoxicosis, unspecified without thyrotoxic crisis or storm Thyrotropin Receptor Antibody Today E05.90 - Thyrotoxicosis, unspecified without thyrotoxic crisis or storm Thyroid Stimulating Immunoglob Today E05.90 - Thyrotoxicosis, unspecified with out thyrotoxic crisis or storm Triiodothyronine T3 Total Today E05.90 - Thyrotoxicosis, unspecified without thyrotoxic crisis or storm US thyroid Today E04.1 - Nontoxic single thyroid nodule, E05.90 - Thyrotoxicosis, unspecified without thyrotoxic crisis or storm Free T4 (Free Thyroxine) Today E05.90 - Thyrotoxicosis, unspecified without thyrotoxic crisis or storm Thyroid Peroxidase Antibodies Today E05.90 - Thyrotoxicosis, unspecified without thyrotoxic crisis or storm Patient Instructions: Do blood work after stopping multivitamin for 3-4 days Do ultrasound of the thyroid , someone will call you to schedule this Follow up in 6 weeks to discuss results Coding Level of Care Code New Pt Level 4 (31324) Diagnoses Hyperthyroidism E05.90 Thyroid nodule E04.1 Time Spent (min) 45
[2024-08-01 09:02] VITALS: BP 110/70; PULSE 77; O2SAT 100; BMI 23.1
--- OUTSIDE RECORDS SUMMARY | 2024-08-01 09:32 | XMS_ITS | Encounter Summary ---
Author Organization [facility] Address [address] [place] [address] Care Team Providers Care Greenhouse Assistant Name Role Phone García Pardo Primary Care Provider Reason for Visit * Reason Comments Med Refill Encounter Details Date Type Department Care Team (Late st Contact Info) Description 10/03/2020 Refill [facility] [address] [place] [address] García Pardo PA [address] [place] [address] Essential (primary) hypertension Social History Tobacco Use [...] declined 04/17/2020 How often do you attend lutheran or mandaeism serv ices? Patient declined 04/17/2020 Do you belong to any clubs o r organizations such as lutheran groups, unions, fraternal or athletic groups, or [...] Recorded Patient Health Questionnaire-2 Score 0 04/17/2020 [facility] - Occupational Stress [...] hypertension documented in this encounter Care Teams Greenhouse Assistant Relationship Specialty Start Date End Date García Pardo PA [address] [place] [address] PCP - General Family Medicine 03/22/20 documented as of this encounter
== END 2024-08-01 09:30 | disposition home or self-care (01) ==
LOC: HO.ENCR 09:00
PROVIDERS: PCP Internal Medicine; Visit Provider Student in an Organized Health Care Education/Training Program
DX: E05.90 Thyrotoxicosis, unspecified without thyrotoxic crisis or storm (principal); E04.1 Nontoxic single thyroid nodule
CPT/HCPCS: 99204

== ENCOUNTER → 2024-08-01 08:59 | Outpatient (BNVA) | payer OTHER, SELFPAY | PROVIDERS: PCP Internal Medicine; Visit Provider Student in an Organized Health Care Education/Training Program ==